=== PATIENT | female | born 1930 | race Two or more races ===

== ENCOUNTER 2018-02-27 15:09 | Inpatient (IN) | payer MEDICAID, MEDICARE ==
[2018-02-27] VITALS: BP 103/50
[~2018-02-27] VITALS: Ht 152.4 cm; Wt 77.1 kg
--- NOTE | 2018-02-27 17:15 | NUR ---
RN NOTES RECEIVED PATIENT, A/O X1, WITH EPISODE OF CONFUSION, ON NASAL CANNULA WITH 4LMP OXYGEN, BREATHING UNLABORED, PATIENT TRANSFERRED TO BED, TELEMONITOR PLACED IN, SKIN ASSESS- INTACT, IV ON THE LEFT ARM AND RIGHT ARM G [address] AND INTACT, WITH ONGOING NS FREE FLOWING- STARTED AT [place]. 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 INFORMED ATTENDING THAT PATIENT HAS BEEN TRANSFERRED IN THE UNIT Addendum: 02/27/18 at 1944 by LUI LOYD RN AWAITING MD ORDERS.
--- NOTE | 2018-02-27 19:00 | NUR ---
RN NOTES SON, EV AT BED SIDE. WAS ABLE TO DO INTERVIEW. PER SON HE HAS THE POWER OF MANAGER INCOME TAX AND WILL PROVIDE IN AM. HE DECIDED PATIENT TO BE ON DNR/ DNI STATUS TIKA KHALIL NP INFORMED. POLST OBTAINED AND SIGNED BY SON.
--- NOTE | 2018-02-27 19:00 | NUR ---
RN NOTES RECEIVED PATIENT LETHARGIC,BUT AROUSABLE TO TOUCH AND NAME CALLING,NON VERBAL,MUMBLES WORDS IF SHE TRIES TO TALK,WITH GENERALIZED WEAKNESS.WITH O2 VIA NASAL CANNULA,NOT IN ANY DISTRESS.PATIENT IS DNR/DNI. 2000 STARTED IV FLUID AT 75 ML/HR. VIA PIV .
[2018-02-27] MEDS ORDERED: FURO-145 PO (19:01)
[2018-02-27] MEDS ORDERED: ONDA4TAB5 PO (19:01)
[2018-02-27] MEDS ORDERED: DOCU100C36 PO (19:01)
[2018-02-27] MEDS ORDERED: FERR325T23 PO (19:01)
[2018-02-27] MEDS ORDERED: AMIT10TA6 PO (19:01)
[2018-02-27] MEDS ORDERED: AMOX-427 PO (19:01)
[2018-02-27] MEDS ORDERED: PRED10TA PO (19:01)
[2018-02-27] MEDS ORDERED: DONE10TA44 PO (19:01)
[2018-02-27] MEDS ORDERED: TEMA15CA PO (19:01)
[2018-02-27] MEDS ORDERED: LEVO25TA9 PO (19:01)
[2018-02-27] MEDS ORDERED: LOSA25TA27 PO (19:01)
[2018-02-27] MEDS ORDERED: ESOM40CA52 PO (19:01)
[2018-02-27] MEDS ORDERED: CARB15DR LEFTEYE (19:01)
[2018-02-27] MEDS ORDERED: TRAV5DRO RIGHTEYE (19:01)
[2018-02-27] MEDS ORDERED: MEMA10TA PO (19:01)
[2018-02-27] MEDS ORDERED: PREG75CA PO (19:01)
[2018-02-27] MEDS ORDERED: BRIM5DRO2 RIGHTEYE (19:03)
[2018-02-27] MEDS ORDERED: ONDANSETRON HCL/PF 4 MG/2 ML VIAL IVP PRN (19:30)
[2018-02-27] MEDS ORDERED: ALBUTEROL FS 2.5 MG/0.5 ML VIAL.NEB NEB PRN (19:30)
[2018-02-27] MEDS ORDERED: ACETAMINOPHEN 325 MG TABLET PO PRN (19:30)
[2018-02-27] MEDS ORDERED: HYDROCODONE/APAP 5/325MG 1 EACH TABLET PO PRN (19:30)
[2018-02-27] MEDS ORDERED: ZOLPIDEM TARTRATE 5 MG TABLET PO PRN (19:30)
[2018-02-27] MEDS ORDERED: IPRATROPIUM NEB FS 0.5 MG/2.5 ML AMPUL.NEB NEB PRN (19:30)
--- NOTE | 2018-02-27 19:30 | NUR ---
RN NOTES ENDORSED PATIENT FOR CONTINUITY OF CARE. NO ACUTE CHANGES THROUGHOUT SINCE TRANSFER. SAFETY MEASURES IN PLACE AT ALL TIME. HOB ELEVATED. CALL LIGHT WITHIN REACH. FAMILY AT BEDSIDE
[2018-02-27 20:00] VITALS: BP 101/47
[2018-02-27] MEDS: methylPREDNISolone SOD SUCC 40 MG/ML VIAL IV SCH (20:11)
[2018-02-28] VITALS: BP 103/50
--- NOTE | 2018-02-28 | NUR ---
RN NOTES REMAINS STABLE,NOT IN ANY DSITRESS.SEEMS MORE RESPONSIVE AND MOVING MORE,TALKS FEW WORDS IN KOREAN, BUT DOES NOT FOLLOW COMMANDS.
[2018-02-28] MEDS: IV NS 0.9% 1,000 ML IV PRN ×3 (01:31→22:35)
[2018-02-28 04:00] VITALS: BP 119/58
[2018-02-28 07:24] LABS: HEMATOCRIT 32 % (33-45); HEMOGLOBIN 10.3 g/dL (11.5-14.8); LYMPHOCYTES # (AUTO) 0.9 /CMM (0.8-4.8); LYMPHOCYTES % (AUTO) 10.9 % (20.0-44.0); MEAN CORPUSCULAR HGB CONC 33 g/dl (31.0-36.0); MEAN CORPUSCULAR VOLUME 96 fL (82-100); MONOCYTES # (AUTO) 0.5 /CMM (0.1-1.30); MONOCYTES % (AUTO) 5.3 % (2.0-12.0); NEUTROPHILS # (AUTO) 7.1 /CMM (1.8-8.9); NEUTROPHILS % (AUTO) 83.8 % (43.0-81.0); PLATELET COUNT (AUTO) 266 /CMM (150-450); RED BLOOD CELL COUNT(AUTO) 3.31 MIL/uL (4.0-5.2); WHITE BLOOD COUNT (AUTO) 8.5 K/uL (4.3-11.0)
[2018-02-28 07:41] LABS: CALCIUM, SERUM 7.9 mg/dL (8.5-10.1); CARBON DIOXIDE 22 mmol/L (21-32); CHLORIDE 116 mmol/L (98-107); GLUCOSE 95 mg/dL (74-106); MAGNESIUM 1.7 mg/dL (1.8-2.4); PHOSPHORUS 3.7 mg/dL (2.5-4.9); POTASSIUM 4.1 mmol/L (3.5-5.1); SODIUM SERUM 147 mmol/L (136-145); UREA NITROGEN, BLOOD 17 mg/dL (7-18)
[2018-02-28 07:57] LABS: BILIRUBIN,DIRECT 0.1 mg/dL (0.0-0.2); BILIRUBIN,TOTAL 0.3 mg/dL (0.2-1.0)
[2018-02-28 08:00] VITALS: BP 128/47
--- NOTE | 2018-02-28 08:00 | NUR ---
PAPO RN NOTES RECEIVED PATIENT IN BED. AWAKE WITH CONFUSION AND RESTLESS TRYING TO GET OUT OFF BED TALKS IN OCCITAN, BUT DOES NOT FOLLOW COMMANDS, ON 4L NC SAT 97% ON TELE MONITOR SB HR 56, NEW HL ON LT FA INSERTED WITH GOOD BLOOD RETURN, ON IVF ORDERED ,FED BREAKFAST BY STAFF , BED IN LOWEST AND LOCKED POSITION , WILL CONT TO MONITOR CLOSELY
[2018-02-28 08:16] LABS: CHOLESTEROL 125 mg/dL (<200); HDL CHOLESTEROL 49 mg/dL (40-60); LDL 65 mg/dL (0-99); TRIGLYCERIDES 116 mg/dL (30-150)
[2018-02-28] MEDS: HEPARIN SODIUM, PORCINE 5000 UNITS/1 ML VIAL SQ SCH ×2 (08:51→20:56)
[2018-02-28] MEDS: methylPREDNISolone SOD SUCC 40 MG/ML VIAL IV SCH ×3 (08:51→16:07)
[2018-02-28 10:26] LABS: APPEARANCE,URINE CLEAR (CLEAR); BILIRUBIN,URINE NEGATIVE (NEGATIVE); BLOOD, URINE NEGATIVE Ery/uL (NEGATIVE); COLOR,URINE YELLOW (YELLOW); KETONES,URINE NEGATIVE (NEGATIVE); LEUKOCYTE ESTERASE ,URINE NEGATIVE (NEGATIVE); NITRITE, URINE NEGATIVE (NEGATIVE); PROTEIN,URINE NEGATIVE (NEGATIVE); UGLUCOSE NEGATIVE (NEGATIVE); UROBILINOGEN,URINE 0.2 EU/dL (0.2)
--- NOTE | 2018-02-28 10:30 | NUR ---
PAPO RN NOTE KEEP CLEAN DY NOT IN DISTRESS
[2018-02-28] MEDS: Magnesium 1GM/D5W 100ML PREMIX 100 ML IV SCH ×2 (10:32→12:21)
[2018-02-28] MEDS ORDERED: CEFTRIAXONE 1 G in IV D5W 50 ML IV SCH (11:00)
[2018-02-28 12:00] VITALS: BP 141/47
[2018-02-28] MEDS ORDERED: AZITHROMYCIN 500 MG in IV D5W 250 ML IV SCH (12:00)
--- NOTE | 2018-02-28 12:50 | NUR ---
PAPO ANTON NOTE SEEN BY TIKA ANTON AUTO CLAIMS ADJUSTER NOTIFIED THAT PATIENT IS WHEEZING AND COUGHING ALSO NOTIFIED THAT ON IVF ,WILL F\U SPOKE WITH FAMILY Addendum: 02/28/18 at 1853 by CHAPARRO REZA RN ASKED TIKA TO DO MED RECON STATED THAT WILL DO IT
[2018-02-28 13:45] LABS: BAND % (MANUAL) 3 % (0.0-5.0); LYMPHOCYTES % (MANUAL) 9 % (16-48); MONOCYTES % (MANUAL) 7 % (0-11.0); NEUTROPHILS % (MANUAL) 81 (42-76)
--- NOTE | 2018-02-28 13:53 | NUR ---
PAPO RN NOTE FAMILY AT BEDSIDE , ON IV ATB
[2018-02-28 16:00] VITALS: BP_SYST 152; BP_DIAS 52; BP_DIAS 62
[2018-02-28] MEDS: LACTOBACILLUS RHAMNOSUS GG 1 EACH CAP.SPRINK PO SCH (16:08)
--- NOTE | 2018-02-28 16:46 | NUR ---
PROBATION AND PAROLE OFFICER NOTE CT CHEST DONE ORDERED
--- NOTE | 2018-02-28 18:32 | NUR ---
BUILDING CONSTRUCTION CONTRACTOR NOTE FAMILY AT BEDSIDE, ALL NEEDS ATTENDED ,HAVING DINNER , CONT ON IVF ORDERED ,WILL MONITOR
[2018-02-28 20:00] VITALS: BP 135/60
[2018-03-01] VITALS: BP 156/81
--- NOTE | 2018-03-01 00:39 | NUR ---
rn notes reported to Dr Victoria. at 00:13. patient had 19 pulses of V-tach then switched to uncontrolled Afib 130s to 140s. Temp 97.7, BP 156/81. O2 sat 98% on 4 Liters. Mental status remains within baseline. Dr Victoria ordered Amiodarone Drip per protocol. orders noted and carried out.
[2018-03-01] MEDS ORDERED: AMIODARONE 150 MG/3 ML VIAL IV ONE ×3 (01:08→01:34)
[2018-03-01] MEDS ORDERED: AMIODARONE 150 MG in IV D5W 100 ML IV ONE (01:30)
[2018-03-01] MEDS ORDERED: AMIODARONE 900 MG in IV D5W 482 ML IV PRN (01:30)
--- NOTE | 2018-03-01 01:53 | NUR ---
RN NOTES 01:13 STARTED AMIO LOADING DOSE PER PROTOCOL. 01:45 STARTED AMIOD DRIP PER PROTOCOL 1MG/MIN WILL CHANGE RATE TO 0.5MG PER MINUTE IN 6 HOURS AT 7:45 AM
--- NOTE | 2018-03-01 02:15 | NUR ---
rn notes patient agitated with episodes of attempting to pull out IV line and tele monitor. requested order of restraints. order noted and carried out
--- NOTE | 2018-03-01 03:20 | NUR ---
RN NOTES AT03:13 PATIENT HAD AN EPISODE OF BRADYCARDIA OF 32BPM AT 03:15 PATIENT HAD AN EPISODE OF VTACH, 35 PULSES IN 6 SECONDS. PATIENT BECAME UNRESPONSIVE WITH LABORED BREATHING. NOTIFIED DR WEINBERG WITH NEW ORDERS. STAT CXR, STAT TROPONIN, STAT ABG, STAT EKG. AND CT TO THE HEAD WITHOUT CONTRAST WHEN STABLE. ORDERS NOTED AND CARRIED OUT. PATIENT SATTING 85 ON 5LPM VIA NASAL CANNULA. APPLIED NON REBREATHER AT 15LPM. PATIENT SATTED 100%.
[2018-03-01 03:38] LABS: ABG BASE EXCESS -12.1 mmol/L; ABG OXYGEN SATURATION 98.9 % (92.0-98.5); ABG PO2 240.7 mmHg (75.0-100.0); AaDO2 432.3 mmHg; COHb 0.3 % (0.5-1.5); MetHb 0.6 % (0.0-1.5); SITE, ABG Right Radial; VENT MODE, BG NRB
--- NOTE | 2018-03-01 03:40 | NUR ---
RN NOTES PATIENT CONVERTED TO SINUS RHYTHM AT 9O'S BEAT PER MINUTE. BP 164/65. BECAME ALERT AND ORIENTED AND VERBAL AGAIN. WILL CONTINUE CARRYING OUT MD ORDERS.
--- NOTE | 2018-03-01 03:50 | NUR ---
rn notes patient converted to Sinus rhythm. Notified MD of ABG, Troponin, EKG and CXR result.
[2018-03-01 04:00] VITALS: BP 177/65
[2018-03-01 04:09] LABS: BASOPHILS % (AUTO) 0.3 % (0.0-2.0); HEMATOCRIT 37 % (33-45); LYMPHOCYTES # (AUTO) 1.8 /CMM (0.8-4.8); LYMPHOCYTES % (AUTO) 12.2 % (20.0-44.0); MEAN CORPUSCULAR HGB CONC 32 g/dl (31.0-36.0); MEAN CORPUSCULAR VOLUME 98 fL (82-100); MONOCYTES # (AUTO) 0.4 /CMM (0.1-1.30); NEUTROPHILS # (AUTO) 12.4 /CMM (1.8-8.9); NEUTROPHILS % (AUTO) 84.5 % (43.0-81.0); PLATELET COUNT (AUTO) 317 /CMM (150-450); WHITE BLOOD COUNT (AUTO) 14.7 K/uL (4.3-11.0)
[2018-03-01 04:17] LABS: CALCIUM, SERUM 8.6 mg/dL (8.5-10.1); CARBON DIOXIDE 22 mmol/L (21-32); CHLORIDE 109 mmol/L (98-107); CREATININE 1.1 mg/dL (0.6-1.3); GLUCOSE 156 mg/dL (74-106); PHOSPHORUS 3.9 mg/dL (2.5-4.9); POTASSIUM 3.6 mmol/L (3.5-5.1); SODIUM SERUM 145 mmol/L (136-145); UREA NITROGEN, BLOOD 17 mg/dL (7-18)
--- NOTE | 2018-03-01 06:40 | NUR ---
[address] SCAN ON ACLS PROTOCOL. PT. AWAKE AND VERBALLY RESPONSIVE. NO SIGNS OF DISTRESS NOTED.
--- NOTE | 2018-03-01 06:50 | NUR ---
[address] REMAINS AWAKE AND VERBALLY RESPONSIVE.
--- NOTE | 2018-03-01 07:45 | NUR ---
PAPO RN NOTE: RECEIVED PATIENT IN BED ALERT TO HER NAME WITH INTERMITTENT CONFUSION. PATIENT WAS NOTED CALM AND QUIET ON AND OFF AT THIS TIME. ON RN BABY SR HR 64. RESPIRATION EVEN AND UNLABORED WITH O2 4L/MIN VIA NC SATURATING 96%. NO FACIAL GRIMACING NOTED. (L) FOREARM IV SITE WAS INFUSING AMIODARONE DRIP 0.5 MG/MIN AND PATIENT'S (B) SOFT WRIST RESTRAINTS WERE RELEASED AT THIS TIME. DUE TO PATIENT'S CONFUSION, SHE PULLED OUT HER (L) FOREARM IV LINE AND MICHELE PEREZ INSERTED A NEW LINE ON THE (R) FOREARM AND IV AMIODARONE WAS ATTACHED TO THE PATIENT AND WAS INFUSING AGAIN PER AMIODARONE PROTOCOL. HOB ELEVATED. BED ALARMED AND LOCKED AT ALL TIMES. ON CLOSE MONITORING WITH STAFF ESPECIALLY WITH HER HEART RHYTHM AND HEART RATE. NEEDS ANTICIPATED AND CALL LIGHT BUTTON WAS PLACED WITHIN REACH.
[2018-03-01 08:00] VITALS: BP 136/63
--- NOTE | 2018-03-01 09:00 | NUR ---
RN NOTE: PATIENT WAS SEATED ON AN UPRIGHT POSITION AND YENIFER ALMANZA WAS TRYING TO FEED THE PATIENT. PATIENT WAS REFUSING TO EAT. ADULT PSYCHIATRIST WAS INFORMED TO KEEP THE BREAKFAST TRAY AND LET THE PATIENT REST FOR THE MEAN TIME. PATIENT WAS PLACED ON SOFT WRIST RESTRAINT ON HER (L) ARM DUE TO HER EPISODES OF CONFUSION AND SEVERAL ATTEMPTS OF REMOVING HER IV LINE ON THE (R) FOREARM.
--- NOTE | 2018-03-01 09:45 | NUR ---
RN NOTE: PATIENT'S FOOT ROENTGENOLOGIST CAMI CALLED THE ASSIGNED NURSE REGARDING THE PATIENT'S CONDITION. SHE WAS NOTED UNRESPONSIVE WITH NO BREATHING AND NO PALPABLE PULSE. CHARGE NURSE CAROL WAS CALLED AND WAS MADE AWARE ABOUT THE PATIENT'S CODE STATUS OF DNR/DNI. RAPID RESPONSE WAS CALLED BY MICHELE MEDINA BUT WAS CANCELLED DUE TO CODE STATUS. ROMAN VILLELA AND DR. BUCK (ER MD) WAS PRESENT AT THE BEDSIDE AND WAS GIVEN REPORT REGARDING THE PATIENT'S CONDITION FROM LAST NIGHT UP TO THIS POINT OF TIME. TIME OF WAS PRONOUNCED BY DR. DAIANA BUCK.
[2018-03-01] MEDS: HEPARIN SODIUM, PORCINE 5000 UNITS/1 ML VIAL SQ SCH (10:00)
[2018-03-01] MEDS: LACTOBACILLUS RHAMNOSUS GG 1 EACH CAP.SPRINK PO SCH (10:00)
[2018-03-01] MEDS: methylPREDNISolone SOD SUCC 40 MG/ML VIAL IV SCH (10:00)
--- NOTE | 2018-03-01 10:00 | NUR ---
PAPO nurse ,Rapid respond called and cancelled due to DNR /DNI status patient DNR /DNI status and with absent respirations,pulseless,no audible heart tones,pupils fixed and dilated ,pronounced at present time family notified Mr Valentine < son> ,Caterina Boone NP and elvis Lona Monroe was notified at 1100, son at bed side at 1200,post mortem given at 1300 body sent to [facility] at this time
--- NOTE | 2018-03-01 10:07 | NUR ---
RN NOTE: CALLED AND SPOKE WITH EV CASTILLO, SON AND MADE HIM AWARE THAT THE PATIENT WAS AND TIME OF WAS AT [address] BUCK (ER MD). PER EV, HE WANTED TO SEE HIS MOTHER AT THE ROOM AND WAS INFORMED ABOUT THE HOSPITAL PROTOCOL THAT THE PATIENT'S BODY CAN BE KEPT IN THE UNIT WITHIN 3 HOURS.
--- NOTE | 2018-03-01 13:15 | NUR ---
RN NOTE: EV SON AND HIS FAMILY REMAINED AT THE PATIENT'S ROOM 115-1 IN ORDER TO SPEAK WITH THE DOCTOR AND HE WAS ASKING OF WHAT EXACTLY HAPPENED TO HIS MOTHER. ROMAN VILLELA WAS AWARE OF THE FAMILY'S PRESENCE IN THE ROOM, BUT WAS UNABLE TO SPEAK WITH THE FAMILY AT THAT MOMENT. RN EXPLAINED TO THE PATIENT'S SON, EV THAT PATIENT WAS HAVING A CHANGE OF CONDITION SINCE MIDNIGHT AND THE WOOD TECHNOLOGIST DOCTOR WAS AWARE. PATIENT WAS HAVING A SUDDEN CHANGE ON HER CARDIAC RHYTHM, BUT WAS BEING TREATED BY THE AMIODARONE DRIP. PATIENT'S FAMILY AND EV SON WAS THANKFUL FOR THE UPDATE AND MADE THEM AWARE THAT ROMAN VILLELA RECEIVED THE MESSAGE THAT HE WANTED TO SPEAK WITH HER AND HIS CELLPHONE NUMBER WAS GIVEN BY THE CHARGE NURSE.
== END 2018-03-01 09:45 | disposition expired | DRG 720 ==
LOC: TELE-TD 17:01 → TELE1 02-28 21:27 → TELE-TD 03-01 01:56
PROVIDERS: ADMIT Nurse Practitioner Acute Care; ATTEND Nurse Practitioner Acute Care
DX: A41.9 Sepsis, unspecified organism (principal); J96.01 Acute respiratory failure with hypoxia; N17.0 Acute kidney failure with tubular necrosis; E87.2 Acidosis; J18.9 Pneumonia, unspecified organism; D68.59 Other primary thrombophilia; R53.2 Functional quadriplegia; F03.90 Unspecified dementia, unspecified severity, without behavioral disturbance, psychotic disturbance, mood disturbance, and anxiety; Z66 Do not resuscitate; J45.909 Unspecified asthma, uncomplicated; Z79.52 Long term (current) use of systemic steroids; I10 Essential (primary) hypertension; Z79.899 Other long term (current) drug therapy; R91.1 Solitary pulmonary nodule
CPT/HCPCS: 36415; 36600; 70450-TC; 71045-TC; 71250-TC; 80048-TC; 80061-TC; 81000-TC; 82247-TC; 82248-TC; 82803-TC; 82962-TC; 83605-TC; 83735-TC; 84100-TC; 84484-TC; 85025-TC; G0378; J0282; J0456; J0696; J1644; J2920; J3475; J7030; J7060